=== PATIENT | male | born 1985 | race Two or more races ===

== ENCOUNTER 2025-01-29 20:03 | Emergency (ER) | payer MEDICAID, SELFPAY ==
[2025-01-29 21:08] VITALS: BP 151/102; BP 166/106; PULSE 91; RESP 17; TEMP 36.9; O2SAT 97
--- NOTE | 2025-01-29 21:16 | XR_ITS ---
Examination: Lumbar spine 3 views TECHNIQUE: AP lateral and cone lateral and lower lumbar spine 3 views Date and time: January 29, 2025 2141 hours INDICATIONS: Low back pain beginning 2 weeks ago. FINDINGS: Transitional S1 vertebral body No lumbar fracture Mild lumbar spondylosis No significant lumbar disc narrowing IMPRESSION: Mild lumbar spondylosis
--- NOTE | 2025-01-29 21:20 | EDNOTE_ITS ---
ED General RME/HPI General Chief complaint: Back Pain/Injury Stated complaint: LOWER BACK PAIN Time Seen by Provider: 01/29/25 20:55 Arrival date/time: 01/29/25 20:03 RME / HPI RME / HPI narrative: 39-year-old male with no past medical history comes into the ED with complaints of back pain. Patient states that his back pain has been going on for around 2 weeks, but to the other he decided to come to the ED because it was more painful than before. 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 He states that his pain does not radiate anywhere and is localized to the left lower lumbar area. He states she has not noticed any changes in his urine color or any dysuria. Patient denies having any chest pain, shortness of breath, abdominal pain, nausea, vomiting, changes in bowel movements, or any recent trauma. Otherwise has no other complaints. Denies any smoking, drugs, and admits social alcohol Related Data Previous Rx's ?Medication ?Instructions ?Recorded baclofen 10 mg tablet 10 mg PO TID PRN muscle spas m 4 01/29/25 days #12 tabs ibuprofen 200 mg capsule (Motrin 200 mg PO Q8H PRN edith n 3 days #9 01/29/25 IB) caps Allergies Allergy/AdvReac Type Severity Reaction Status Date / Time No Known Allergies Allergy Verified 01/29/25 20:05 Review of Systems Review of Systems Systems Reviewed: All systems reviewed, normal except as documented Past Medical History Past Medical History Comments PMH COMMENT: PMH: None Allergies: NKDA Social Hx: Denies any smoking or drugs, admits to social drinking ED Exam Narrative Physical exam: Gen: A&O X 3, NAD HEENT: NCAT, EOMI, Pupils reactive CARLITO, not icteric. External ears normal. No rhinorrhea. Moist mucous membranes. Neck: Supple, full range of motion, no observable masses, No meningeal sign. Lungs: No Respiratory distress, clear bilateral. CV: RRR, no murmurs. Abdomen: Soft, nondistended, No rebound tenderness. MSK: No joint swelling, no redness, peripheral pulses presents, lumbar with no edema, Tenderness to the lower lumbar area on the left side with palpation, good extension and flexion of the spine with some pain on both extension and flexion, pain does not radiate to lower extremities.No decrease ROM. Skin: No rashes, petechiae, lesions.. Neuro: No focal neurological deficits appreciated, sensory and motor intact. Psych: Cooperative, appropriate mood and effect. Course Quality Measures none Orders Category Date Time Status XR lumbar spine 2-3V Stat Exams 01/29/25 21:16 Taken Drug Screen,Urine Stat Lab 01/29/25 21:12 Completed UA, C/S IF [Urinalysis, C/S if Indicated] Stat Lab 01/29/25 21:12 Completed Baclofen [Lioresal] Med 01/29/25 21:16 Discontinued 10 mg PO X1 ONE Ketorolac Inj [Toradol Inj] Med 01/29/25 21:16 Discontinued 30 mg IM X1 ONE Vital Signs Vital signs: Vital Signs Temperature 98.5 F 01/29/25 21:08 Pulse Rate 91 01/29/25 21:08 Respiratory Rate 17 01/29/25 21:08 Blood Pressure 166/106 H 01/29/25 21:08 Pulse Oximetry (%) 97 01/29/25 21:08 Oxygen Delivery Method Room Air 01/29/25 21:08 Discharge Plan Plan Patient Disposition: HOME (Self Care) Prescriptions/Referrals Prescriptions/Med Rec: New baclofen 10 mg tablet 10 mg PO TID PRN (Reason: muscle spasm) 4 Days Qty: 12 0RF ibuprofen [Motrin IB] 200 mg capsule 200 mg PO Q8H PRN (Reason: pain ) 3 Days Qty: 9 0RF Referrals: No Primary/Family,Physician [Primary Care Provider] - In 1 week Problem List Clinical Impression: Strain of lumbar region Patient/Caregiver Discharge Instructions Other Activity Instructions:: Please follow your primary care physician within 5 days Have prescribed baclofen 10 mg 3 times daily as needed for muscle spasms for the next 4 days. Have prescribed Motrin every 8 hours as needed for pain for the next 3 days.. Recommend light work for the next 3 days and avoiding lifting heavy objects for the next 3 days or until you see improvement in pain. Come back to the ED if you develop any numbness, neurological deficits, worsening pain, swelling, or any worsening symptoms. Saque pako de seguimiento con larson doctor primario dentro de 5 henry He recetado Baclofen 10mg 3 veces al gurinder inez necesite para espasmos musculares por los proximos 4 henry He recetado motrin 200mg 3 veces al gurinder inez necesite para el dolor por los proximos 3 henry Recomiendo trabajo liviano por los proximos 3 henry y evitar levantar objetos pesados por los proximos 3 henry o hasta que note mejoria en larson dolor Vuelva a marti de emergencia si desarolla entumecimiento, deficiencias shaheen rologicas, empeoramiento en el dolor, inflamacion, or peores sintomas. Education Materials: Self-Care for Strains and Sprains, ED Back Sprain/Strain Print Language: Yemeni Stand Alone Forms: Breann Award Info., Work/School Release, Patient Portal Info Letter MDM Narrative MDM hospital course: Patient was seen and evaluated upon arrival to the room by myself. Diagnostic imaging and labs were ordered. Pain medication was also ordered. Patient's lumbar x-ray was reviewed by ED physician, Dr. Hugo, and no fractures or displacements were seen. At this time patient is stable enough to be discharged back home with light duty and avoiding lifting heavy objects for the next 3 days if he has seen improvement. Patient agrees with plan. Case disclosed with Attending Dr. Rekha Damian PGY2 Disclaimer: Even though this this note was dictated by speech recognition and ev en though it was carefully revised there may still be minor errors in engineer second assistant due to voice recognition software. Medication Administration(s) Medication Administration History Discontinued Medications Baclofen (Baclofen 10 Mg Tablet) 10 mg PO X1 ONE Stop: 01/29/25 21:17 Last Admin: 01/29/25 21:30 Dose: 10 mg Documented By: SF Ketorolac Tromethamine (Ketorolac Inj 60 Mg/2 Ml Vial) 30 mg IM X1 ONE Stop: 01/29/25 21:17 Last Admin: 01/29/25 21:30 Dose: 30 mg Documented By: SF
[2025-01-29 21:24] LABS: Collection Type, Urine Clean Catch; Squamous Epithelial Cell,Urine 0 /hpf (0-5); WBC,Urine 0 /hpf (0-5)
[2025-01-29] MEDS: KETOROLAC INJ 60 MG/2 ML VIAL 30 MG IM (21:30)
[2025-01-29] MEDS: BACLOFEN 10 MG TABLET PO (21:30)
[2025-01-29 21:37] LABS: Amphetamine/Methamp Scrn,U Negative (Negative); Barbiturate Screen,Urine Negative (Negative); Benzodiazepines Screen,Urine Negative (Negative); Benzoylecgonine Screen, Ur Negative (Negative); Fentanyl Screen,Urine Negative (Negative); Opiate Screen,Urine Negative (Negative); THC Screen,Urine Negative (Negative)
[2025-01-29 21:46] LABS: Bilirubin,Urine Negative (Negative); Blood,Urine Negative (Negative); Clarity,Urine Clear (Clear/Hazy); Color,Urine Lt-Yellow (Lt Yel-Yel); Culture Indicated,Urine Not Indicated; Glucose, Urine 4+ (Negative); Ketones,Urine Negative (Negative); Leukocyte Esterase,Urine Negative (Negative); Nitrite,Urine Negative (Negative); PH,Urine 6.5 (5.0-7.0); Protein,Urine 1+ (Neg - Trace); RBC,Urine 3 /hpf (0-3); Specific Gravity,Urine 1.042 (1.001-1.035); Urobilinogen,Urine Negative mg/dL (0.0-1.0)
== END 2025-01-29 23:06 | disposition home or self-care (01) ==
DX: S39.012A Strain of muscle, fascia and tendon of lower back, initial encounter (principal); X58.XXXA Exposure to other specified factors, initial encounter
CPT/HCPCS: 72100; 80307; 81001; 96372; 99284; J1885; A9270